=== PATIENT | female | born 1965 | race American Indian/Alaskan Native ===

== ENCOUNTER 2016-09-01 16:13 | Emergency (ER) | payer BC ==
[2016-09-01 16:27] VITALS: BMI 34.5
[2016-09-01 16:41] VITALS: TEMP 98.2; O2SAT 100
[2016-09-01] MEDS ORDERED: Sodium Chloride 0.9% 500 ML IV STA (16:44)
--- NOTE | 2016-09-01 16:55 | ED PDOC ---
Arrival/HPI - History of Present Illness Time/Duration: Prior to Arrival Symptom Onset: Gradual Symptom Course: Unchanged Context: Home - General Chief Complaint: Female Genitourinary Time Seen by Provider: 09/01/16 16:24 - History of Present Illness Narrative History of Present Illness (Text): 09/01/16 16:47 50 yo female with PMH of HI s/p 2 stents, fibroids presents to emergency department with heavy vaginal bleeding and abd pain. Patient states that she has been having vaginal bleeding intermittently for the past month, however on Thursday the bleeding became heavy. Patient states that this morning she became nauseous and had 1 episode of non-bloody vomiting. Patient also reports abd pain located in the lower quadrants she describes the pain as cramping. Patient state she took Advil and it did not help with her pain. She states that she has not been able to see an OBGYN recently. She denies chest pain, shortness of breath, fever, chills, dizziness or urinary symptoms. PMD: Dr. More 09/01/16 18:39 (Danielle Stanley) Past Medical History - Provider Review Nursing Documentation Reviewed: Yes - Infectious Disease Hx of Infectious Diseases: None - Cardiac Hx Cardiac Disorders: Yes Hx Pacemaker: No Other/Comment: 2 stents placed - Pulmonary Hx Respiratory Disorders: No - Neurological Hx Paralysis: No - HEENT Hx HEENT Disorder: No (WEARS RX GLASSES FOR READING) - Renal Hx Renal Disorder: No - Endocrine/Metabolic Hx Endocrine Disorders: No - Hematological/Oncological Hx Blood Transfusions: Yes Hx Blood Transfusion Reaction: No Other/Comment: low iron - Integumentary Hx Dermatological Disorder: Yes (H/O OF PLEBITIS RIGHT LEG) - Musculoskeletal/Rheumatological Hx Musculoskeletal Disorders: No - Genitourinary/Gynecological Hx Genitourinary Disorders: No (ONE MISCARRIAGE,IRREGULAR MENSTRUATION,FIBROIDS) - Psychiatric Hx Emotional Abuse: No Hx Physical Abuse: No Hx Substance Use: No - Surgical History Other/Comment: 2 stents placed in heart - Anesthesia Hx Anesthesia: Yes Hx Anesthesia Reactions: No - Suicidal Assessment Feels Threatened In Home Enviroment: No Family/Social History - Physician Review Nursing Documentation Reviewed: Yes Family/Social History: CAD/HI Smoking Status: Never Smoked Hx Alcohol Use: No Hx Substance Use: No Allergies/Home Meds Allergies/Adverse Reactions: Allergies No Known Allergies Allergy (Verified 09/01/16 16:27) Home Medications: Home Meds Medication Instructions Recorded Confirmed Aspirin 81 mg PO DAILY 05/06/13 09/01/16 Atorvastatin Calcium [Lipitor] 80 mg PO QPM 05/06/13 09/01/16 Clopidogrel Hydrogen Sulfate 75 mg PO DAILY 05/06/13 09/01/16 [Plavix] Lisinopril 2.5 mg PO DAILY 05/06/13 09/01/16 Ferrous Sulfate 325 mg PO BID 06/12/14 09/01/16 Metoprolol Succinate [Toprol XL] 25 mg PO QPM 11/28/14 09/01/16 Review of Systems - Review of Systems Constitutional: Normal. absent: Fatigue, Fevers Eyes: Normal. absent: Vision Changes ENT: Normal. absent: Sore Throat, Rhinorrhea, Sinus Congestion Respiratory: Normal, Cough. absent: SOB, Wheezing Cardiovascular: Normal. absent: Chest Pain, Palpitations Gastrointestinal: Abdominal Pain, Nausea, Vomiting. absent: Constipation, Diarrhea Genitourinary Female: Normal, Vaginal Bleeding. absent: Dysuria, Frequency, Hematuria Musculoskeletal: Normal. absent: Arthralgias, Myalgias Skin: Normal. absent: Rash, Pruritis, Skin Lesions Neurological: Normal. absent: Headache, Dizziness Endocrine: Diaphoresis Hemo/Lymphatic: Normal Psychiatric: Normal Physical Exam - Systems Exam Head: Present: Atraumatic, Normocephalic Pupils: Present: PERRL. No: Non-Reactive, Pinpoint Extroacular Muscles: Present: EOMI Conjunctiva: Present: Normal Mouth: Present: Moist Mucous Membranes Neck: Present: Normal Range of Motion Respiratory/Chest: Present: Clear to Auscultation, Good Air Exchange. No: Respiratory Distress, Accessory Muscle Use, Wheezes, Rales, Rhonchi, Tachypneic Cardiovascular: Present: Regular Rate and Rhythm, Normal S1, S2. No: Murmurs, Tachycardic, Bradycardic Abdomen: Present: Tenderness, Normal Bowel Sounds. No: Distention, Peritoneal Signs Back: Present: Normal Inspection Upper Extremity: Present: Normal Inspection. No: Cyanosis, Edema Lower Extremity: Present: Normal Inspection, NORMAL PULSES. No: Edema, CALF TENDERNESS, Swelling Neurological: Present: GCS=15, CN II-XII Intact, Speech Normal Skin: Present: Warm, Dry, Normal Color. No: Rashes, Diaphoretic, Pale Psychiatric: Present: Alert, Oriented x 3, Normal Insight, Normal Concentration Vital Signs Temp Pulse Resp BP Pulse Ox 09/01/16 19:28 92 H 16 133/75 100 09/01/16 16:40 98.2 F 86 17 120/70 100 Medical Decision Making ED Course and Treatment: Patient seen and examined with resident. Came up with treatment and disposition plan with resident. (Rashad Lemus) 09/01/16 16:55 Impression: 50 yo female with PMH of HI s/p 2 stents, fibroids presents to emergency department with heavy vaginal bleeding and abd pain. Differential Diagnosis included but are not limited to: - menorrhagia, anemia Plan: - cbc, cmp - PT,PTT - IVF - Reassess and disposition Progress Notes: 09/01/16 18:52 - Patient states the pain has improved. Repeat exam, abd was soft nontender. Labs reviewed and discussed with patient. Patient was advised to follow up with PMD and OBGYN in 1-2 days. All questions answered. Discharge plan was discussed with patient she is agreeable. (Danielle Stanley) - Lab Interpretations Lab Results: 09/01/16 17:45 09/01/16 17:45 Lab Results 09/01/16 17:45: Sodium 137, Potassium 3.9, Chloride 106, Carbon Dioxide 24, Anion Gap 11, BUN 9, Creatinine 0.7, Est GFR ( Amer) > 60, Est GFR (Non- Af Amer) > 60, Random Glucose 107, Calcium 8.7, Total Bilirubin 0.6, AST 19, ALT 19, Alkaline Phosphatase 104, Total Protein 6.5, Albumin 3.4, Globulin 3.1, Albumin/Globulin Ratio 1.1 09/01/16 17:45: PT 10.5, INR 0.97, APTT 26.4 09/01/16 17:45: WBC 8.7 D, RBC 3.83, Hgb 10.8 L, Hct 33.7 L, MCV 88.0, MCH 28.2 , MCHC 32.0, RDW 15.5 H, Plt Count 285, MPV 9.2, Gran % 86.2 H, Lymph % (Auto) 8.4 L, Nicholas % (Auto) 4.7, Eos % (Auto) 0.6 L, Baso % (Auto) 0.1, Gran # 7.54 H, Lymph # 0.7 L, Nicholas # 0.4, Eos # 0.1, Baso # 0.01 - Medication Orders Current Medication Orders: Discontinued Medications Sodium Chloride (Sodium Chloride 0.9%) 500 mls @ 999 mls/hr IV .Q31M STA Stop: 09/01/16 17:14 Last Admin: 09/01/16 17:46 Dose: 999 mls/hr Disposition/Present on Arrival - Present on Arrival Any Indicators Present on Arrival: No History of DVT/PE: No History of Uncontrolled Diabetes: No Urinary Catheter: No History of Decub. Ulcer: No History Surgical Site Infection Following: None - Disposition Have Diagnosis and Disposition been Completed?: Yes Disposition Time: 18:50 Patient Plan: Discharge - Disposition Diagnosis: Menorrhagia Disposition: HOME/ ROUTINE Condition: GOOD Discharge Instructions (ExitCare): Menorrhagia (ED) Additional Instructions: Kamila Mckeon, thank you for letting us take care of you today. Your provider was Dr. Stanley and Dr. Lemus. You were treated for menorrhagia. The emergency medical care you received today was directed at your acute symptoms. If you were prescribed any medication, please fill it and take as directed. It may take several days for your symptoms to resolve. Return to the Emergency Department if your symptoms worsen, do not improve, or if you have any other problems. Please contact your doctor or call one of the physicians/clinics you have been referred to that are listed on the Patient Visit Information form that is included in your discharge packet. Bring any paperwork you were given at discharge with you along with any medications you are taking to your follow up visit. Our treatment cannot replace ongoing medical care by a primary care provider (PCP) outside of the emergency department. Thank you for allowing the [facility] team to be part of your care today. Referrals: Fredi More MD [Primary Care Provider] - Follow up with primary
[2016-09-01 17:51] LABS: ADD MANUAL DIFF? NO
[2016-09-01 17:57] LABS: BASO # 0.01 K/mm3 (0.0-2.0); BASO % 0.1 % (0.0-3.0); EOS # 0.1 (0.0-0.7); EOS % 0.6 % (1.5-5.0); GRAN # 7.54 (1.4-6.5); GRAN % 86.2 % (50.0-68.0); HEMATOCRIT 33.7 % (36.0-48.0); LYMPH # 0.7 (1.2-3.4); LYMPH % 8.4 % (22.0-35.0); MEAN CORPUSCULAR HEMOGLOBIN 28.2 pg (25.0-35.0); MEAN PLATELET VOLUME 9.2 fl (7.0-11.0); MONO # 0.4 (0.1-0.6); MONO % 4.7 % (1.0-6.0); PLATELET COUNT 285 10^3/uL (120.0-450.0); RED CELL DISTRIBUTION WIDTH 15.5 % (11.5-14.5); WHITE BLOOD COUNT 8.7 10^3/ul (4.5-11.0)
[2016-09-01 18:06] LABS: INR 0.97 (0.93-1.08); PARTIAL THROMBOPLASTIN TIME 26.4 Seconds (23.7-30.8)
[2016-09-01 18:09] LABS: ALB/GLOB RATIO 1.1 (1.1-1.8); ALKALINE PHOSPHATASE 104 U/L (38-133); ALT/SGPT 19 U/L (7-56); AST/SGOT 19 U/L (15-39); BILIRUBIN,TOTAL 0.6 mg/dL (0.2-1.3); BLOOD UREA NITROGEN 9 mg/dL (7-21); CALCIUM 8.7 mg/dL (8.4-10.5); CARBON DIOXIDE 24 mmol/L (21-33); CHLORIDE 106 mmol/L (98-107); GFR AFRICAN-AMERICAN > 60; GLUCOSE,RANDOM 107 mg/dL (70-110); POTASSIUM 3.9 mmol/L (3.6-5.0); SODIUM 137 mmol/L (132-148); TOTAL PROTEIN 6.5 g/dL (5.8-8.3)
[2016-09-01 19:30] VITALS: BP 133/75; PULSE 92; RESP 16
== END 2016-09-01 19:44 | disposition home or self-care (01) ==
LOC: ED 16:13
DX: N92.0 Excessive and frequent menstruation with regular cycle (principal)
CPT/HCPCS: 80053; 85025; 85610; 85730; 99283; J7040

== ENCOUNTER 2018-03-19 07:26 | Day surgery (SDC) | payer BC ==
[2018-03-18 07:53] VITALS: BMI 34.7
[2018-03-19 08:03] LABS: BASO # 0.01 K/mm3 (0.0-2.0); BASO % 0.2 % (0.0-3.0); EOS # 0.3 (0.0-0.7); EOS % 4.6 % (1.5-5.0); GRAN # 3.37 (1.4-6.5); GRAN % 62.4 % (50.0-68.0); HEMOGLOBIN 12.6 g/dL (12.0-16.0); LYMPH # 1.4 (1.2-3.4); LYMPH % 25.2 % (22.0-35.0); MEAN CORPUSCULAR HEMOGLOBIN 28.4 pg (25.0-35.0); MEAN CORPUSCULAR HGB CONC 31.9 g/dl (31.0-37.0); MEAN PLATELET VOLUME 9.5 fl (7.0-11.0); MONO # 0.4 (0.1-0.6); MONO % 7.6 % (1.0-6.0); RBC 4.44 10^6/uL (3.5-6.1); RED CELL DISTRIBUTION WIDTH 15.1 % (11.5-14.5); WHITE BLOOD COUNT 5.4 10^3/uL (4.5-11.0)
[2018-03-19 08:10] LABS: INR 0.97; PARTIAL THROMBOPLASTIN TIME 32.3 Seconds (25.1-36.5); PROTHROMBIN TIME 11.1 SECONDS (9.4-12.5)
[2018-03-19 08:11] LABS: BLOOD UREA NITROGEN 16 mg/dL (7-21); CALCIUM 9.8 mg/dL (8.4-10.5); GFR NON-AFRICAN AMERICAN > 60
[2018-03-19] MEDS ORDERED: Iodixanol 320 MG/ML 200 ML BOTTLE IV ONE (09:02)
[2018-03-19] MEDS ORDERED: Lidocaine 2% Inj (20ml) ONE (09:02)
[2018-03-19] MEDS ORDERED: Nitroglycerin 50mg in D5W 0 MG/0 ML BOTTLE IV ONE (09:03)
[2018-03-19] MEDS ORDERED: Midazolam 2 MG/2 ML VIAL ONE (09:13)
[2018-03-19] MEDS ORDERED: Oxycodone/Acetaminophen 5/325 mg Tab PO PRN (09:56)
[2018-03-19] MEDS ORDERED: Sodium Chloride 0.45% 1,000 ML IV SCH (10:00)
--- NOTE | 2018-03-19 18:16 | VASCULAR ---
Date of service: 03/19/2018 PROCEDURE: 1. Bilateral iliac venogram. 2. 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 Evaluate for right iliac venous occlusive disease COMPARISON: TECHNIQUE: The relative risks and indications of the procedure were explained the patient consent obtained. Patient placed supine on the arteriogram table the right groin prepped and draped usual sterile fashion. Conscious sedation monitoring were provided throughout the procedure by a nurse. Under ultrasound guidance, the right common femoral vein was punctured with a micropuncture set. A 5 Kuwaiti sheath was placed. A 5 Kuwaiti flush catheter was placed at the right common femoral vein and multiple DSA right iliac venogram performed. The catheter was advanced over bifurcation placed in the left iliac venous system. Left iliac venogram was performed. Findings the catheter was placed in the IVC at the bifurcation and a DSA IVC gram performed. The catheter was removed hemostasis obtained. The patient tolerated the procedure well. FINDINGS: The right common femoral vein and right iliac veins are widely patent without a radiographically significant stenosis. No severe collaterals are seen. The visualized left iliac venous system is normal. The IVC is patent and normal. No acute thrombus is present. No significant post phlebitic changes are noted centrally. IMPRESSION: Widely patent bilateral iliac veins and IVC
== END 2018-03-19 13:00 | disposition home or self-care (01) ==
LOC: SDS 07:26
PROVIDERS: ATTEND Radiology Vascular & Interventional Radiology
DX: I87.031 Postthrombotic syndrome with ulcer and inflammation of right lower extremity (principal); I82.521 Chronic embolism and thrombosis of right iliac vein; M79.89 Other specified soft tissue disorders
CPT/HCPCS: 36011; 36415; 75822; 75825; 80048; 85025; 85610; 85730; 99152; 99153; C1760; C1769; C1887; C1894; J1644; J2250; J2405; J3010; J7030; Q9966

== ENCOUNTER 2018-06-10 06:22 | Day surgery (SDC) | payer BC, OTHER ==
[2018-05-25 10:19] VITALS: BMI 33.9
--- NOTE | 2018-06-10 00:16 | HP ---
DATE OF EXAM: 06/09/2018 REASON FOR ADMISSION: Left heart cath, possible angioplasty. BRIEF CLINICAL HISTORY: This is a 52-year-old morbidly obese female with past medical history significant for acute coronary syndrome with unstable angina in 2013 when the patient presented with a non-ST segment myocardial infarction and at that time patient had angioplasty done on 05/03/2013, when a staged angioplasty was done of the circumflex. Initially, patient had angioplasty of RCA and then followed by PTCA of the circumflex and the repeat catheterization on 07/29/2014 because of abnormal stress test and at that time the repeat cath showed a patent stent. Patient had abnormal stress test recently, was having bleed secondary to fibroid uterus, and so a stress test was done and found to be abnormal, but since the patient was undergoing a hysterectomy so the cath was postponed. Recently, patient complained of some shortness of and so patient was clinically elected for cardiac cath with possible angioplasty. PAST MEDICAL HISTORY: Significant for obesity, hypertension, hyperlipidemia, history of non-ST segment myocardial infarction, coronary artery disease, status post PTCA of RCA of a totally occluded RCA was done on 05/02/2013, followed by staged PTCA of circumflex on 05/06/2013. PREVIOUS CARDIAC WORKUP FOLLOWS: Patient had a stress test dated 01/26/2017 that shows abnormal equivocal stress test, but cardiac catheterization was not done because patient was undergoing hysterectomy because of bleed. Patient prior to that had acute coronary syndrome, history of totally occluded RCA and PTCA was done on 05/02/2013 followed by staged PTCA of circumflex on 05/06/2013 and then patient had a repeat cardiac catheterization on 11/29/2014, which showed patent stent. PAST SURGICAL HISTORY: As mentioned, a history of non-ST segment myocardial infarction status post PTCA of RCA on 05/03/2013 and a staged PTCA of circumflex on 05/06/2013. Stress test again on 11/29/2014, patent stent. History of hysterectomy in 08/2017. SOCIAL HISTORY: Denies any smoking. Denies any history of alcohol abuse. CURRENT MEDICATIONS: Patient is taking aspirin 81 mg daily, Plavix 75 mg daily, atorvastatin 80 mg daily, lisinopril 2.5 mg daily, ferrous sulfate 325 mg daily, metoprolol 25 mg daily. ALLERGIES: NO KNOWN DRUG ALLERGY. REVIEW OF SYSTEMS: As per HPI. PHYSICAL EXAMINATION GENERAL: Height of the patient 5 feet 6 inches, weight of the patient is 210 pounds, body mass index 33.9 kg/m2. VITAL SIGNS: Temperature afebrile. Heart rate 60, blood pressure 120/70. HEENT: PERRLA. Extraocular muscles intact. NECK: Supple. No carotid bruit. No thyromegaly. CHEST: Clear to auscultation. HEART: S1 and S2 regular. ABDOMEN: Soft. EXTREMITIES: Clubbing and cyanosis negative. LABORATORY DATA: Blood workup pending. IMPRESSION AND PLAN: A 52-year-old female with past medical history significant for anemia secondary to genitourinary bleed status post hysterectomy for uterine fibroid. History of coronary artery disease status post status post percutaneous transluminal coronary angioplasty of right coronary artery totally occluded on 05/02/2013, and staged percutaneous transluminal coronary angioplasty of circumflex on 05/06/2013, abnormal stress test. On this admission, the patient is scheduled for elective cardiac catheterization with possible angioplasty. We will load with Plavix today and follow up with the blood work. If the blood work is okay we will proceed for cardiac catheterization. Further recommendations after cardiac catheterization. Thank you Dr. More for providing us the opportunity in taking care of the patient, Kamila Morgan. Brooke Serrano MD
[2018-06-10] MEDS ORDERED: Iohexol 350 MG/100 ML VIAL ONE (06:48)
[2018-06-10] MEDS ORDERED: Nitroglycerin 50mg in D5W 0 MG/0 ML BOTTLE IV ONE (06:48)
[2018-06-10] MEDS ORDERED: Verapamil 0 ML ONE (06:48)
[2018-06-10] MEDS ORDERED: Iohexol 350mgl/ml 50 ML ONE (06:48)
[2018-06-10] MEDS ORDERED: Lidocaine PF 2% (5 ml) Inj (For Cardiac Arrhy) ONE (06:48)
[2018-06-10 07:06] VITALS: O2SAT 97
[2018-06-10 07:18] LABS: BASO # 0.01 K/mm3 (0.0-2.0); BASO % 0.2 % (0.0-3.0); EOS # 0.2 (0.0-0.7); EOS % 4.3 % (1.5-5.0); HEMOGLOBIN 12.1 g/dL (12.0-16.0); LYMPH # 1.6 (1.2-3.4); LYMPH % 27.8 % (22.0-35.0); MEAN CELL VOLUME 90.1 fl (80.0-105.0); MEAN CORPUSCULAR HEMOGLOBIN 28.6 pg (25.0-35.0); MEAN CORPUSCULAR HGB CONC 31.8 g/dl (31.0-37.0); MEAN PLATELET VOLUME 9.3 fl (7.0-11.0); MONO # 0.5 (0.1-0.6); RBC 4.23 10^6/uL (3.5-6.1); RED CELL DISTRIBUTION WIDTH 15.2 % (11.5-14.5); WHITE BLOOD COUNT 5.6 10^3/uL (4.5-11.0)
[2018-06-10 07:22] LABS: BLOOD UREA NITROGEN 16 mg/dL (7-21); CALCIUM 9.4 mg/dL (8.4-10.5); GFR NON-AFRICAN AMERICAN > 60; HDL CHOLESTEROL 29 mg/dL (29-60)
[2018-06-10 07:23] LABS: INR 1.02; PARTIAL THROMBOPLASTIN TIME 38.8 Seconds (26.9-38.3); PROTHROMBIN TIME 11.5 SECONDS (9.4-12.5)
[2018-06-10 07:33] LABS: LDL CHOLESTEROL 164 mg/dL (0-129)
[2018-06-10] MEDS ORDERED: Midazolam 2 MG/2 ML VIAL ONE (07:43)
[2018-06-10] MEDS ORDERED: Eptifibatide 20 mg/10mL Inj IVP ONE (08:13)
[2018-06-10] MEDS ORDERED: Sodium Chloride 0.9% 1,000 ML IV SCH (09:00)
--- NOTE | 2018-06-10 09:28 | CPOSTOP ---
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 TYPE OF ANESTHESIA: Moderate conscious sedation. Total 2 mg of Versed and 100 of fentanyl given. PRE-PROCEDURE DIAGNOSIS: Unstable angina, abnormal stress test, history of multiple stents. PROCEDURE PERFORMED: 1. Left heart catheterization. 2. Stenting of diagonal 1 with drug-eluting stent. 3. PRU 66. FINDINGS: Patent stent in circumflex, patent stent in RCA placed in 2013. Diagonal 1 has 95% stenosis. FINAL DIAGNOSIS: Single-vessel disease. POST PROCEDURE CONDITION: The patient's condition is stable. VASCULAR ACCESS SITE: Right femoral artery. CLOSURE DEVICE: Angio-Seal. TOTAL RADIATION DOSE: 27501.8 milligray unit. CUMULATIVE DOSE: 1618 milligray unit. FLUORO TIME: 8.5 minutes. Brooek Serrano MD
[2018-06-10 12:27] VITALS: RESP 19; TEMP 98.9
[2018-06-10 13:13] LABS: BLOOD UREA NITROGEN 13 mg/dL (7-21); CALCIUM 9.4 mg/dL (8.4-10.5); GFR NON-AFRICAN AMERICAN > 60
[2018-06-10 13:15] LABS: BASO # 0.01 K/mm3 (0.0-2.0); BASO % 0.2 % (0.0-3.0); EOS # 0.1 (0.0-0.7); EOS % 2.9 % (1.5-5.0); HEMOGLOBIN 12.1 g/dL (12.0-16.0); LYMPH # 1.2 (1.2-3.4); LYMPH % 26.2 % (22.0-35.0); MEAN CELL VOLUME 90.3 fl (80.0-105.0); MEAN CORPUSCULAR HEMOGLOBIN 28.7 pg (25.0-35.0); MEAN CORPUSCULAR HGB CONC 31.8 g/dl (31.0-37.0); MEAN PLATELET VOLUME 9.2 fl (7.0-11.0); MONO # 0.2 (0.1-0.6); MONO % 5.1 % (1.0-6.0); RBC 4.21 10^6/uL (3.5-6.1); RED CELL DISTRIBUTION WIDTH 15.2 % (11.5-14.5); WHITE BLOOD COUNT 4.5 10^3/uL (4.5-11.0)
[2018-06-10 14:57] VITALS: BP 123/72; PULSE 80
--- NOTE | 2018-06-10 19:09 | CARD ---
APPROVED REPORT Date of service: 06/10/2018 Procedure(s) performed: Left Heart Catheterization PTCA with Stenting of D1 with ISAÍAS PRU..... 65 ( pt is sensitive to Plavix). HISTORY The patient is a 52 year-old female with a history of : previous [place] (> 7 days), peripheral vascular disease, previous diagnostic cath, previous PCI (The PCI date was 05/06/2013), hypertension , dyslipidemia , had an abnormal stress test. INDICATION The indication(s) include : positive stress test, dyspnea. CASE TECHNIQUE The patient was brought electively to the Cardiac Catheterization Laboratory in a fasting state and was prepped and draped in a sterile manner. The right femoral groin was infiltrated with 2% Lidocaine subcutaneous anesthesia. A 6 Fr x 11 cm Abby sheath was inserted into the right femoral artery without difficulty. Coronary angiography was performed using coronary diagnostic catheters. The left coronary system was accessed and visualized with a Diagnostic , 5F JL 4 CATH DXT 100 CM catheter. The right coronary system was accessed and visualized with a Diagnostic ,5F JR 4 CATH DXT 100 CM catheter. The left ventricle was accessed and visualized with a 5F PIGTAIL 145 CATH DXT 110 CM catheter. Left ventricular/Aortic Valve gradient assessed on pullback. Left ventriculogram was performed in ADLER projection. The patient tolerated the procedure well and there were no complications associated with the procedure. Vessel Analysis The patient's coronary anatomy is right dominant. The left main coronary artery is a medium size vessel without significant stenosis. The left main bifurcates to the left anterior descending and circumflex. The left anterior descending artery is a medium size vessel with diffuse calcification noted throughout this vessel and without significant stenosis. The first diagonal branch is a medium size vessel with diffuse calcification noted throughout this vessel and with significant stenosis. There is a 95% stenosis in the proximal segment. The circumflex artery is a medium size vessel with diffuse calcification noted throughout this vessel and without significant stenosis. patent stet in Mid Cx The first obtuse marginal branch is a medium size vessel with diffuse calcification noted throughout this vessel and without significant stenosis. The second obtuse marginal branch is a medium size vessel with diffuse calcification noted throughout this vessel and without significant stenosis. The right coronary artery is a large size vessel with diffuse calcification noted throughout this vessel and without significant stenosis. Patent stent in proximal RCA There is a 30-40% stenosis in the mid segment. Distal RCA has 40% stenosis The right posterior descending artery is a medium size vessel with diffuse calcification noted throughout this vessel and without significant stenosis. The right posterolateral branch is a small size vessel with diffuse calcification noted throughout this vessel and with significant stenosis. There is a 60-70% stenosis in the ostial segment. Left Ventricle The left ventricle is Normal in size with normal contractility. There was no cardiomyopathy. The left ventricular ejection fraction is estimated to be 65%. The left ventricular end diastolic pressure is 18 mmHg. There was no gradient across the aortic valve upon pullback. PCI Technique Lesion Anticoagulation was achieved with Heparin and integrellin Bolus. Percutaneous coronary intervention was performed on the first diagnonal branch segment. The lesion stenosis prior to intervention was 95% with DOUG 2 flow. A 6 Fr XB 3.5 Guide Catheter was used to engage the ostium. BALLOON DILATION A Balloon catheter 2.0 x 12 mm Sprinter RX was inserted and inflated up to 8.00atm for 17seconds. STENT DEPLOYMENT A drug-eluting stent STENT RESOLUTE BARRETT 2.5 X12 was inserted and inflated up to 12.00atm for 18seconds. Final angiography reveals 0 % stenosis with DOUG 3 flow. Conclusion Single vessel D1 critical Disease Moderate Diz in Distal RCA. Preserved Lv Fx, EF-65%, EDP-18 mmof Hg. Successful PTCa with ISAÍAS of D1. Pt is sensitive to Plavix ( PRU...65) Recommendations Daily ASA with Plavix for at least one year Aggressive Medical TherapyCardiac Risk Reduction Program Weight Loss Reduction Program Cc; Jose Richmond MD
--- NOTE | 2018-06-10 20:57 | CON ---
DATE: 06/10/2018 HISTORY OF PRESENT ILLNESS: The patient is a 52-year-old black female known to me from previous admission from office practice. She was admitted for elective cardiac cath and had angioplasty of diagonal branch done and being admitted for observation. Denies any chest pain. No shortness of breath. PAST MEDICAL HISTORY: 1. She has past medical history of coronary artery disease, status post angioplasty of circumflex and RCA. She has a repeat cath done in 2014 that showed she had abnormal stress test at that time. The repeat cath shows patent stent. 2. History of anemia secondary to menorrhagia and had a hysterectomy done last year. 3. Hyperlipidemia. 4. Hypertension. PAST SURGICAL HISTORY: Significant for; 1. Multiple angioplasties. 2. Status post hysterectomy. ALLERGY: SHE IS NOT ALLERGIC TO ANY MEDICATION. MEDICATIONS AT HOME: She is on metoprolol 25 mg daily, ferrous sulfate 325 mg daily, lisinopril 12.5 mg daily, Plavix 75 mg daily, atorvastatin 80 mg daily, and aspirin 81 mg daily. SOCIAL HISTORY: She is , lives with her . 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 PHYSICAL EXAMINATION: GENERAL: She is awake and alert, able to communicate. VITAL SIGNS: She is afebrile, pulse 85, respiration 18, and blood pressure 116/62. LUNGS: Bilateral fair airflow. No rhonchi or crackle. HEART: S1 and S2 audible. ABDOMEN: Soft and nontender. No rebound. No guarding. NEUROLOGIC: She is awake, alert, oriented, and communicative. LABORATORY DATA: WBC is 5.6, hemoglobin 12, hematocrit 38, and platelets 13. Chemistry; sodium 140, potassium 4.3, chloride 109, CO2 of 26, BUN 16, creatinine 0.8, blood sugar of 124, triglycerides 199, total cholesterol 245, LDL is 164, and HDL is 29. ASSESSMENT: 1. Coronary artery disease, status post diagonal angioplasty. 2. Hypertension. 3. Coronary artery disease, status post angioplasty of circumflex and right coronary artery in the past. 4. Anemia secondary to fibroid uterus, but now had hysterectomy done. 5. Hyperlipidemia. The patient states she has not been compliant and she has not been taking her cholesterol medicines for sometime, and she was advised very strictly to continue to be compliant with her aspirin and statins. She understands that and will resume it upon discharge. PLAN: The patient is going to be discharged later on today on her usual medications including beta jacquie, her lisinopril, Plavix 75 mg daily, atorvastatin 80 mg daily, and aspirin 81 mg daily. Followup in office. Fredi More MD
--- NOTE | 2018-06-11 10:37 | CARD ---
APPROVED REPORT Date of service: 06/10/2018 EKG Measurement Heart [id number] <Conclusion> Normal sinus rhythm Leftward axis Q waves leads 3 and AVF- cannot exclude old IMI CCR Abnormal ECG
== END 2018-06-10 17:25 | disposition home or self-care (01) ==
LOC: CATH 06:22 → 2RSO 09:09 → CATH 17:25
PROVIDERS: ATTEND Internal Medicine Cardiovascular Disease
DX: I25.110 Atherosclerotic heart disease of native coronary artery with unstable angina pectoris (principal); I10 Essential (primary) hypertension; I25.82 Chronic total occlusion of coronary artery; I73.9 Peripheral vascular disease, unspecified; D64.9 Anemia, unspecified; E78.5 Hyperlipidemia, unspecified; E66.01 Morbid (severe) obesity due to excess calories; Z68.33 Body mass index [BMI] 33.0-33.9, adult; Z91.19 Patient's noncompliance with other medical treatment and regimen; Z79.82 Long term (current) use of aspirin; Z90.710 Acquired absence of both cervix and uterus; Z95.5 Presence of coronary angioplasty implant and graft
CPT/HCPCS: 36415; 80048; 80061; 85025; 85175; 85576; 85610; 85730; 86850; 86900; 93458; 99152; 99153; C1725; C1769 ×2; C1874; C1887; C2629; C9600; J1327; J1644 ×2; J2250; J3010; J7030; J7040; Q9967 ×3